=== PATIENT | male | born 2000 | race Caucasian/White ===

== ENCOUNTER 2021-06-01 13:33 | Outpatient (CLI) | payer OTHER ==
--- NOTE | 2021-06-01 16:03 | MRI Report ---
PROCEDURE: Shoulder LT W/O INDICATIONS: BILATERAL SHOULDER PAIN TECHNIQUE: Noncontrast oblique coronal T2 fast spin echo with fat saturation, oblique sagittal T1 spin echo and T2 fast spin echo with fat saturation, axial T1 spin echo and T2 fast spin echo with fat saturation t hrough the shoulder. COMPARISON: None. FINDINGS: Image quality: Excellent. Rotator cuff: Tendinosis and low-grade articular and bursal surface partial-thickness tear involving distal supraspinatus at its insertion on humeral head is seen extending to muscular tendinous junctio n. Distal infraspinatus tendinosis is seen. Distal subscapularis tendon is intact. No full-thickness rotator cuff tendon rupture. No rotator cuff muscle atrophy on sagittal images. Bones and bursae: There is mild edema involving acromioclavicular joint. No fracture or dislocation. The acromion demonstrates conventional anatomy, without an os acromiale. No pathologic subacromial/s ubdeltoid bursal fluid is present. Capsule and soft tissues: There is signal abnormality and contour irregularity involving anterior inf erior labrum at 4 to 6:00 position with adjacent lobulated cystic structure measures 1.3 x 0.9 x 0.5 cm in size suggestive of anterior inferior labral tear with perilabral cyst. The long head of the bic eps tendon demonstrates normal location and morphology. The rotator interval appears normal, without fibrosis. The coracohumeral ligament is normal in thickness. IMPRESSION: 1. Finding is suggestive of anterior inferior labral tear at 4 to 6:00 position with adjacent perilab ral cyst as above. 2. Tendinosis and low-grade articular and bursal surface partial-thickness tear involving distal supr aspinatus extending to musculotendinous junction. Distal infraspinatus tendinosis. No full-thickness rotator cuff tendon rupture. No muscle atrophy. 3. Mild edema involving acromioclavicular joint which may represent contusion. No fracture or disloca tion. No significant joint effusion. Reviewed by: Tank Figueredo MD on 06/01/2021 4:02 PM PDT Approved by: Tank Figueredo MD on 06/01/2021 4:02 PM PDT Station ID: [id number]
--- NOTE | 2021-06-01 16:54 | MRI Report ---
PROCEDURE: Shoulder RT W/O INDICATIONS: BILATERAL SHOULDER PAIN TECHNIQUE: Noncontrast oblique coronal T2 fast spin echo with fat saturation, oblique sagittal T1 spin echo and T2 fast spin echo with fat saturation, axial T1 spin echo and T2 fast spin echo with fat saturation t hrough the shoulder. COMPARISON: None. FINDINGS: Image quality: Degraded by motion artifact and technical factors. Rotator cuff: The supraspinatus, infraspinatus, and subscapularis tendons appear intact throughout. No rotator cuff muscle atrophy on sagittal images. Bones and bursae: No bone marrow contusions or fractures. No acromioclavicular joint degeneration. Unfused acromial apophysis versus os acromiale is present. No pathologic subacromial/subdeltoid bursa l fluid is present. Capsule and soft tissues: Labrum is not well visualized. Anteroinferior para labral cyst measuring 25 mm is present. Posterior superior paralabral cyst measuring 15 mm. The long head of the biceps tendo n demonstrates normal location and morphology. The rotator interval appears normal, without fibrosis . The coracohumeral ligament is normal in thickness. IMPRESSION: 1. No rotator cuff tear. 2. Suboptimal dilation of the glenoid labrum. Secondary findings suggestive of labral tears. 3. Unfused acromial apophysis versus os acromiale. Reviewed by: Collin Mullen MD on 06/01/2021 4:53 PM PDT Approved by: Collin Muleln MD on 06/01/2021 4:53 PM PDT Station ID: [id number]
== END 2021-06-01 13:34 | disposition home or self-care (01) ==
LOC: DI 13:33
PROVIDERS: ATTEND Family Medicine
DX: R93.6 Abnormal findings on diagnostic imaging of limbs (principal); R93.89 Abnormal findings on diagnostic imaging of other specified body structures; M75.112 Incomplete rotator cuff tear or rupture of left shoulder, not specified as traumatic

== ENCOUNTER 2021-07-10 06:00 | Outpatient (CLI) | payer OTHER ==
--- NOTE | 2021-07-10 13:36 | XRAY Report ---
PROCEDURE: Shoulder 3 View BILAT INDICATIONS: BILAT SHOULDER PAIN TECHNIQUE: 4 views of the left shoulder and 4 views of the right shoulder, 4 total of 8 radiographic views. COMPARISON: None. FINDINGS: Joint space is maintained. No degenerative changes. No fracture. Normal coracoclavicular and acromioc lavicular distances. No suspicious lytic or blastic osseous lesion. Regional soft tissues are normal. IMPRESSION: Normal bilateral shoulder radiographs. Reviewed by: Shakeel Davis MD on 07/10/2021 1:35 PM PDT Approved by: Shakeel Davis MD on 07/10/2021 1:35 PM PDT Station ID: [id number]
== END 2021-07-10 23:59 | disposition home or self-care (01) ==
LOC: DI.WOS 06:00
PROVIDERS: ATTEND Physician Assistant Surgical
DX: M25.512 Pain in left shoulder (principal); M25.511 Pain in right shoulder

== ENCOUNTER 2023-06-15 20:50 | Emergency (ER) | payer OTHER ==
[2023-06-15 21:23] LABS: BILIRUBIN,URINE NEGATIVE (NEGATIVE); GLUCOSE, URINE (UA) NEGATIVE (NEGATIVE); KETONES,URINE (UA) NEGATIVE (NEGATIVE); LEUKOCYTE ESTERASE, URINE NEGATIVE (NEGATIVE); NITRITE,URINE NEGATIVE (NEGATIVE); OCCULT BLOOD,URINE NEGATIVE (NEGATIVE); PROTEIN,URINE NEGATIVE (NEGATIVE); UROBILINOGEN,URINE 0.2 (NORMAL) E.U./dL (NORMAL)
[2023-06-15 21:26] LABS: CLARITY,URINE CLEAR (CLEAR)
--- NOTE | 2023-06-15 23:07 | ED Physician Documentation ---
PD HPI BACK PAIN - Stated complaint Stated Complaint: LOWER BACK PX - Chief complaint Chief Complaint: Back Pain - History obtained from History obtained from: Patient - Additional information Additional information: HPI from patient. Patient c/o urinary urgency, frequency, burning dysuria, and sensation of incomplete voiding since yesterday. Since earlier today, he has developed episodic bilateral lower abdominal pain radiating around to the back. There are no ameliorating factors. Denies fever, denies hematuria, denies h/o similar symptoms. He is sexually active with a single partner. He denies penile discharge. He says he was seen in clinic outpatient earlier today for same symptoms and was advised to go to ED. PD PAST MEDICAL HISTORY - Past Medical History Past Medical History: Yes Cardiovascular: None Respiratory: None Neuro: None Endocrine/Autoimmune: None GI: None : None HEENT: None Psych: Depression Musculoskeletal: None Derm: None - Past Surgical History Past Surgical History: No - Present Medications Home Medications: Ambulatory Orders Medication Instructions Recorded Confirmed buPROPion [Wellbutrin Xl] 300 mg PO DAILY 06/15/23 06/15/23 - Allergies Allergies/Adverse Reactions: Allergies Allergy/AdvReac Type Severity Reaction Status Date / Time No Known Drug Allergies Allergy Verified 06/15/23 21:04 - Social History Does the pt smoke?: Yes Smoking Status: Current every day smoker Does the pt drink ETOH?: No Does the pt have substance abuse?: No - Immunizations Immunizations are current?: Yes - POLST Patient has POLST: No PD ED PE NORMAL - Vitals Vital signs reviewed: Yes - General General: Alert and oriented X 3, No acute distress, Well developed/nourished - Abdomen Abdomen: Soft, Non tender, Non distended - Back Back: No CVA TTP - Derm Derm: No rash Results - Vitals Vitals: Oxygen O2 Source Room air - Labs Labs: Laboratory Tests 06/15/23 21:00 Urine Color LIGHT YELLOW Urine Clarity CLEAR Urine pH 7.0 Ur Specific [place] <=1.005 Urine Protein NEGATIVE Urine Glucose (UA) NEGATIVE Urine Ketones NEGATIVE Urine Occult Blood NEGATIVE Urine Nitrite NEGATIVE Urine Bilirubin NEGATIVE Urine Urobilinogen 0.2 (NORMAL) Ur Leukocyte Esterase NEGATIVE Ur Microscopic Review NOT INDICATED Urine Culture Comments NOT INDICATED PD Medical Decision Making - ED course Complexity details: considered differential, d/w patient ED course: Normal UA. unremarkable physical exam. Doubt urethritis (single partner, no discharge, and urethritis would not account for abdominal/back pain). Doubt renal colic (even microscopic hematuria could cause burning sensation and other symptoms similar to UTI such as frequency, incomplete voiding, but bilateral discomfort would be quite atypical and no hematuria on UA also argues against this diagnosis). UTI itself, including pyelonephritis, are not supported by normal UA. Further emergent testing is unlikely to yield diagnosis and/or suggest specific treatment (such as antibiotic). I explained this concept to the patient and he says he is comfortable with d/c, f/u with PCP, return if worse or new signs/symptoms develop. Departure - Departure Disposition: 01 Home, Self Care Clinical Impression: Dysuria Condition: Good Instructions: ED Dysuria Uncertain Cause Comments: The results of ela's urinalysis were completely normal; the cause of your symptoms remains unclear at this time. As we discussed, further emergent testing is unlikely to reveal or suggest a particular diagnosis. However, you should follow-up with your primary care provider (next appointment) for reevaluation, and certainly return to the emergency department at any time your symptoms worsen or if you develop new/concerning signs/symptoms (such as fever, vomiting, diarrhea). Discharge Date/Time: 06/15/23 23:32
[2023-06-15 23:34] VITALS: BP 153/92; O2SAT 99
== END 2023-06-15 23:32 | disposition home or self-care (01) ==
LOC: ED 20:50
DX: R30.0 Dysuria (principal); F17.200 Nicotine dependence, unspecified, uncomplicated
CPT/HCPCS: 81001; 81003; 87086; 99283

== ENCOUNTER 2023-07-15 21:45 | Outpatient (CLI) | payer OTHER | END 2023-07-15 23:59 | disposition critical access hospital (66) | LOC: EMS 21:45 | DX: Z04.6 Encounter for general psychiatric examination, requested by authority (principal); F10.129 Alcohol abuse with intoxication, unspecified; R11.10 Vomiting, unspecified | CPT/HCPCS: A0425; A0427 ==

== ENCOUNTER 2023-07-15 22:04 | Emergency (ER) | payer OTHER ==
--- NOTE | 2023-07-15 22:21 | ED Physician Documentation ---
PD HPI ALTERED MENTAL STATUS - Stated complaint Stated Complaint: ETOH - History obtained from History obtained from: EMS - Additional information Additional information: HPI from EMS. Patient's mental status is far too altered to provide any HPI/ROS. Per EMS report, patient's s.o. called 911 due to patient exhibiting severely altered mental status after returning home from a green party where, per EMS (with information from patient's s.o.), it is suspected her drank alcohol to excess. Recently started on a new anti-depressant but no information from significant other to suggest SI. No report of fall or other injury. PD PAST MEDICAL HISTORY - Past Medical History Cardiovascular: None Respiratory: None Neuro: None Endocrine/Autoimmune: None GI: None : None HEENT: None Psych: Depression Musculoskeletal: None Derm: None - Past Surgical History Past Surgical History: No - Present Medications Home Medications: Ambulatory Orders Medication Instructions Recorded Confirmed buPROPion [Wellbutrin Xl] 300 mg PO DAILY 06/15/23 06/15/23 - Allergies Allergies/Adverse Reactions: Allergies Allergy/AdvReac Type Severity Reaction Status Date / Time No Known Drug Allergies Allergy Verified 06/15/23 21:04 - Social History Does the pt smoke?: Yes Smoking Status: Current every day smoker Does the pt drink ETOH?: No Does the pt have substance abuse?: No - Immunizations Immunizations are current?: Yes - POLST Patient has POLST: No PD ED PE NORMAL - Vitals Vital signs reviewed: Yes - General General: Well developed/nourished, Other (obtunded; he will briefly arouse to repeated verbal with significant tactile (shoulder shake but at times needs mild sternal rub for purposes of preventing hypoxia (see MDM, below)); does not provide any intelligible answers to my questions (occasionally grunts with a few of my questions)) - HEENT HEENT: Atraumatic, PERRL, Moist mucous membranes - Cardiac Cardiac: RRR, No murmur - Respiratory Respiratory: No respiratory distress, Clear bilaterally - Abdomen Abdomen: Soft, Non distended - Extremities Extremities: No deformity PD ED PE EXPANDED - GCS Eye Opening: To Pain Motor: Localizes to Pain Verbal: Incomprehensible Total: 9 Results - Vitals Vitals: Vital Signs - 24 hr 07/16/23 07/16/23 07/16/23 01:31 03:59 04:35 Heart Rate 95 94 112 H Respiratory 16 16 18 Rate Blood Pressure 109/63 116/71 136/68 H O2 Saturation 97 95 98 If not protocol 2 2 : Oxygen Flow, liters/minute 07/16/23 05:35 Heart Rate 100 Respiratory 14 Rate Blood Pressure 128/66 O2 Saturation 99 If not protocol : Oxygen Flow, liters/minute Oxygen O2 Source Room air Oxygen Flow Rate 2 - Labs Labs: Laboratory Tests 07/15/23 07/15/23 22:40 22:40 WBC 9.2 RBC 4.49 L Hgb 14.5 Hct 42.8 MCV 95.3 H MCH 32.3 H MCHC 33.9 RDW 12.9 Plt Count 222 MPV 9.3 Neut # (Auto) 6.7 H Lymph # (Auto) 1.7 [place] # (Auto) 0.5 Eos # (Auto) 0.2 Baso # (Auto) 0.1 Absolute Nucleated RBC 0.00 Nucleated RBC % 0.0 Sodium 138 Potassium 3.6 Chloride 106 Carbon Dioxide 22 Anion Gap 10.0 BUN 21 H Creatinine 1.4 H Estimated GFR (MDRD) 64 L Glucose 111 H Calcium 8.6 Magnesium 2.1 Total Bilirubin 0.3 AST 39 ALT 79 H Alkaline Phosphatase 61 Total Creatine Kinase 362 H Total Protein 6.7 Albumin 4.3 Globulin 2.4 Albumin/Globulin Ratio 1.8 Lipase 15 TSH 2.64 Salicylates < 1.5 Acetaminophen < 0.1 Ethyl Alcohol 278.3 PD Medical Decision Making - ED course Complexity details: reviewed old records, reviewed results, re-evaluated patient, considered differential, d/w patient ED course: Frequent desaturations to mid-upper 70s on bedside pulse ox readings which clinically correlated with patient's significantly depressed level of consciousness with concomitant hypopnea. He would correct to low-mid 90s pulse ox when stimulated (sometimes requires painful stimulus) and instructed to take deep breaths. Due to repeated such episodes, he is placed on supplemental [place] oxygen which maintained adequate pulse ox for remainder of ED visit. No notable findings on CBC, ER abdominal panel (BUN 21 with marginally elevated creatinine of 1.4). Normal LFTs, lipase. Most relevant and predictable is an elevated serum ethanol level (278). He is observed in ED for just over seven hours. During that time, he gradually b ecame more awake and alert and responsive. At approximately 4:30 AM, ED RN informed me that patient is awake, alert, and conversant. I then reevaluated him. He tells me he does not recall coming in to ED last night at all. He says he was at a green party last night and readily acknowledges that he drank too much alcohol (liquor). He says this is not typical for him; he denies heavy alcohol use on either intermittent (binge) or regular basis. He strongly denies any suicidal thoughts or intent. He is comfortable with d/c home at this point. I advised him to follow up with his PCP if he is concerned about his alcohol intake and/or his ability to control it Departure - Departure Disposition: Home, Self Care Clinical Impression: Alcohol intoxication Qualifiers: Complication of substance-induced condition: uncomplicated Qualified Code(s): F10.920 - Alcohol use, unspecified with intoxication, uncomplicated Condition: Good Instructions: ED Alcohol Intoxication Comments: Your blood alcohol level was quite high tonight. When you were first brought into the emergency department by the ambulance, you were extremely drowsy and your oxygen level was repeatedly dropping well below normal range due to not taking normal/deep breaths. After several hours in the emergency department, you gradually became more awake and alert; this makes the high level of alcohol in your system the most likely explanation for the altered mental status earlier in your ER stay (improving as the alcohol wears off). Incidental note on the blood tests are very mildly abnormal kidney function te sts (BUN and creatinine). These results are not to a concerning extent, but you should mention these abnormalities to your primary care provider when you next follow-up with them; at their discretion, you might benefit from having these tests repeated in the outpatient setting. Discharge Date/Time: 07/16/23 05:35
[2023-07-15] MEDS ORDERED: THIAMINE 100 MG/1 ML 2 ML MDV ONE (22:23)
[2023-07-15] MEDS: THIAMINE INJ 100 MG in SODIUM CHLORIDE 0.9% 50 ML IV STA (22:27)
[2023-07-15] MEDS: SODIUM CHLORIDE 0.9% 1,000 ML IV STA (22:33)
[2023-07-15 22:43] LABS: BASOPHILS # (AUTO) 0.1 10^3/uL (0.0-0.1); BASOPHILS % (AUTO) 0.5 %; EOSINOPHILS # (AUTO) 0.2 10^3/uL (0.0-0.7); EOSINOPHILS % (AUTO) 1.7 %; HCT - HEMATOCRIT 42.8 % (42.0-52.0); HGB - HEMOGLOBIN 14.5 g/dL (14.0-18.0); LYMPHOCYTES # (AUTO) 1.7 10^3/uL (1.5-3.5); LYMPHOCYTES % (AUTO) 18.3 %; MEAN CORPUSCULAR HEMOGLOBIN 32.3 pg (27.0-31.0); MEAN CORPUSCULAR HGB CONC 33.9 g/dL (32.0-36.0); MEAN CORPUSCULAR VOLUME 95.3 fL (80.0-94.0); MEAN PLATELET VOLUME 9.3 fL (7.4-11.4); MONOCYTES # (AUTO) 0.5 10^3/uL (0.0-1.0); MONOCYTES % (AUTO) 5.8 %; NEUTROPHILS # (AUTO) 6.7 10^3/uL (1.5-6.6); NEUTROPHILS % (AUTO) 72.9 %; PLT - PLATELET COUNT 222 10^3/uL (130-450); RED BLOOD COUNT 4.49 10^6/uL (4.70-6.10); RED CELL DISTRIBUTION WIDTH 12.9 % (12.0-15.0); WHITE BLOOD COUNT 9.2 x10^3/uL (4.8-10.8)
[2023-07-15 22:57] LABS: ALBUMIN 4.3 g/dL (3.2-5.5); ALBUMIN/GLOBULIN RATIO 1.8 (1.0-2.2); ALKALINE PHOSPHATASE 61 IU/L (42-121); ALT ALANINE AMINOTRANSFERASE 79 IU/L (10-60); AST ASPARTATE AMINOTRANSFERASE 39 IU/L (10-42); BILIRUBIN,TOTAL 0.3 mg/dL (0.2-1.0); BUN - BLOOD UREA NITROGEN 21 mg/dL (6-20); CALCIUM 8.6 mg/dL (8.5-10.3); CARBON DIOXIDE - CO2 22 mmol/L (21-32); CHLORIDE 106 mmol/L (101-111); CK- CREATINE KINASE 362 IU/L (30-223); CREATININE 1.4 mg/dL (0.6-1.3); ETOH - ETHANOL 278.3 mg/dL; GFR - MDRD 64 (>89); GLUCOSE 111 mg/dL (74-104); LIPASE 15 U/L (11-82); MAGNESIUM 2.1 mg/dL (1.7-2.3); POTASSIUM 3.6 mmol/L (3.5-4.5); SODIUM 138 mmol/L (135-145); TOTAL PROTEIN 6.7 g/dL (6.4-8.9)
[2023-07-15 23:00] LABS: ACETAMINOPHEN < 0.1 ug/mL; SALICYLATE < 1.5 mg/dL
[2023-07-15 23:13] LABS: THYROID STIMULATING HORMONE 2.64 uIU/mL (0.34-5.60)
[2023-07-16 05:44] VITALS: BP 128/66; O2SAT 99
== END 2023-07-16 05:35 | disposition home or self-care (01) ==
LOC: EDUNIT# → ED 22:04
DX: F10.129 Alcohol abuse with intoxication, unspecified (principal); F17.200 Nicotine dependence, unspecified, uncomplicated; Y90.8 Blood alcohol level of 240 mg/100 ml or more; R94.4 Abnormal results of kidney function studies
CPT/HCPCS: 36415; 80053; 80143; 80179; 82077; 82550; 83690; 83735; 84443; 85025; 96365; 96366; 99284; J3411; J7040